=== PATIENT | male | born 1985 | race American Indian/Alaskan Native ===

== ENCOUNTER 2017-05-14 15:32 | Emergency (ER) | payer SELFPAY ==
[2017-05-14] MEDS: TETRACAINE 0.5% OU ONE (20:10)
[2017-05-14] MEDS: FUL-GLO OP ONE (20:10)
[2017-05-14] MEDS: ULTRAM PO ONE (20:11)
[2017-05-14 22:40] VITALS: BP 134/66
--- NOTE | 2017-05-14 22:53 | Cat Scan Report ---
FINAL REPORT PROCEDURE: CT head without contrast. TECHNIQUE: Computerized tomography of the head was performed without contrast material. HISTORY: Vision loss. COMPARISON: No prior studies are available for comparison. FINDINGS: The ventricles are normal in size. The jeffers matter and white matter appear normal. There are no mass lesions. There is no intracranial hemorrhage. There are no signs of acute infarction. The calvarium appears intact. The mastoid air cells are clear. There is mucosal thickening in both frontal sinuses and in several of the ethmoid air cells. IMPRESSION: Normal study of the brain. Chronic frontal and ethmoid sinusitis.
--- NOTE | 2017-05-14 23:25 | Emergency Department Report ---
Eye Injury/Foreign Body - HPI Duration: 6 months Eye Location: Left Severity: Mild Tetanus Status: Unknown Eye Symptoms: Eye Pain: Yes, Blurred Vision: Yes, Eye Redness: Yes, Grinding/ Hammering Metal: No, Used Eye Protection: No, Contact Lens Use: Yes, Recalls Injury: No, Photophobia: No Other History: 31 year old male presents to ED with left eye pain [id number]. 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 patient states he can still occasionally see white light in left eye. patient states he is contact lens user. ED Review of Systems ROS: Stated complaint: POSS PINK EYE Other details as noted in HPI Constitutional: denies: chills, fever Eyes: eye pain, eye discharge, vision change ENT: denies: ear pain, throat pain Respiratory: denies: cough, shortness of breath, wheezing Cardiovascular: denies: chest pain, palpitations Endocrine: no symptoms reported Gastrointestinal: denies: abdominal pain, nausea, vomiting, diarrhea Genitourinary: denies: urgency, dysuria Musculoskeletal: denies: back pain, joint swelling, arthralgia Skin: denies: rash, lesions Neurological: denies: headache, weakness, paresthesias, abnormal gait, vertigo Psychiatric: denies: anxiety, depression Hematological/Lymphatic: denies: easy bleeding, easy bruising ED Past Medical Hx - Past Medical History Previous Medical History?: No - Surgical History Past Surgical History?: No - Social History Smoking Status: Current Every Day Smoker Substance Use Type: None - Medications Home Medications: Home Medications Medication Instructions Recorded Confirmed Last Taken Type No Known Home Medications [No 05/14/17 05/14/17 Unknown History Reported Home Medications] Eye Injury Exam - Exam General: Vital signs noted. No distress. Alert and acting appropriately. - Visual Acuity Left Vision Acuity Degree: only see light Eye Exam: Left Injection, Left Chemosis, Left Abnormal Pupil (exudates present) , Left Mucous Discharge, Left Fluorescein Uptake (corneal abrasion present), Left Fluorescein Uptake (slit lamp), Left Corneal Edema, Neither EOMI (normal), Neither Eye Foreign Body (none), Neither Lid Foreign Body (none), Neither Purulent Discharge (none), Neither Photophobia (none) Right Vision Acuity Degree: 20/200 Bilateral Vision Acuity Degree: 20/200 ED Course Vital Signs 05/14/17 05/14/17 05/14/17 16:03 20:11 21:11 Temperature 99.6 F Pulse Rate 80 Respiratory 16 18 20 Rate Blood Pressure 120/73 Blood Pressure [Left] O2 Sat by Pulse 99 Oximetry 05/14/17 05/14/17 22:39 22:41 Temperature 97.7 F Pulse Rate 73 Respiratory 20 20 Rate Blood Pressure Blood Pressure 134/66 [Left] O2 Sat by Pulse 97 Oximetry ED Medical Decision Making - Radiology Data Radiology results: report reviewed CT brain Normal study of the brain. Chronic frontal and ethmoid sinusitis. - Medical Decision Making 31 year old male presents to ED with possible corneal abrasion. I have spoken with Dr. Perdomo ([employer] [facility]) at [facility] and patient is ok to be transferred to [facility] for further evaluation from [facility] due to acute loss of vision in left eye. patient is stable, neurologically intact and in no acute distress. patient has normal CT of brain. Critical care attestation.: If time is entered above; I have spent that time in minutes in the direct care of this critically ill patient, excluding procedure time. ED Disposition Clinical Impression: Corneal abrasion Qualifiers: Encounter type: initial encounter Laterality: left Qualified Code(s): S05.02XA - Injury of conjunctiva and corneal abrasion without foreign body, left eye, initial encounter Disposition: [id number] ANOTHER TYPE HLTHCARE Is pt being admited?: No Does the pt Need Aspirin: No Condition: Stable
== END 2017-05-15 02:00 | disposition other institution (70) ==
LOC: ED 15:32
DX: S05.02XA Injury of conjunctiva and corneal abrasion without foreign body, left eye, initial encounter (principal); F17.200 Nicotine dependence, unspecified, uncomplicated; X58.XXXA Exposure to other specified factors, initial encounter; Y93.9 Activity, unspecified; Y92.9 Unspecified place or not applicable; Y99.9 Unspecified external cause status
CPT/HCPCS: 70450